=== PATIENT | female | born 1985 | race African-American/Black ===

== ENCOUNTER 2019-03-01 07:10 | Inpatient (IN) | payer BC ==
[~2019-03-01 07:10] MED LIST: ELECTROLYTE-148 SOLN 1,000 ML IV SCH
[2019-03-01] MEDS ORDERED: CITRIC ACID/SODIUM CITRATE 30 ML UNIT-DOSE CUP PO ONE (08:00)
[2019-03-01] MEDS ORDERED: ELECTROLYTE-148 SOLN 1,000 ML IV SCH ×2 (08:10→10:00)
[2019-03-01 08:37] VITALS: BMI 43.0
[2019-03-01] MEDS ORDERED: OXYTOCIN 20 UNITS in 0.9% NS 40 UNIT/2,000 ML INFUS.BAG IV ONE (09:00)
--- NOTE | 2019-03-01 09:59 | HP ---
Past Medical History - Admission Chief Complaint: breech History of Present Illness: none History Source: Patient Limitations to Obtaining History: No Limitations - Past Medical History DIRECTOR BROADCAST: No: Alzheimer's, CVA, Dementia, Migraine, Multiple Sclerosis, Peripheral Neuropathy, Parkinson's, Seizure, Syncope, TIA, Vertigo, Other Cardiovascular: No: AFIB, Aneurysm, Aortic Insufficiency, Aortic Stenosis, CAD, CHF, Deep Vein Thrombosis, HTN, Hyperlipdemia, [place], Mitral Insufficiency, Mitral Stenosis, Murmur, Pulmonary Hypertension, Other Pulmonary: No: Asthma, Bronchitis, Cancer, COPD, O2 Dependent, Pneumonia, Previously Intubated, Pulmonary Embolus, Pulmonary Fibrosis, Sleep Apnea, Other Gastrointestinal: No: Ascites, Cancer, Constipation, Crohn's Disease, Diverticulitis, Diverticulosis, Esophageal Varices, Gastritis, GERD, GI Bleed, Hemorrhoids, Hiatal Hernia, Inflamatory Bowel Disease, Irritable Bowel Disease, Pancreatitis, Peptic Ulcer Disease, Ulcerative Colitis, Other Hepatobiliary: No: Cirrhosis, Cholelithiasis, Cholecystitis, Choledocholithiasis , Hepatitis A, Hepatitis B, Hepatitis C, Other Renal/: No: Renal Failure, Renal Inusuff, BPH, Cancer, Hematuria, Hemodialysis , Neurogenic Bladder, Renal Calculi, UTI, Other Reproductive: No: Ectopic , Endometriosis, Fibroids, PID, Polycystic Ovary Syndrome, Postmenopausal, Other ...: 1 ...Para: 0 ...Term: 0 ...: 0 ...Spon : 0 ...Induced : 0 ...Multiple Gestation: 0 ... Weeks Gestation by Dates: 39 ...EDC by Alberto: 03/09/19 Heme/Onc: No: Anemia, B12 Deficiency, Bleeding Disorder, Cancer, Current Chemotherapy, Current Radiation Therapy, Hemochromatosis, Hypercoaguable State, Myeloproliferative Synd, Sickle Cell Disease, Sickle Cell Trait, Thrombocytopenia, Other Infectious Disease: No: AIDS, C-Diff, Herpes Zoster, HIV, MRSA, STD's, Tuberculosis, VREF, Other Psych: No: Addictions, Anxiety, Bipolar, Depression, Panic, Psychosis, Schizophrenia, Other Musculoskeletal: No: Bursitis, Chronic low back pain, Hemiparesis, Hemiplegia, Osteoarthritis, Paraplegia, Other Rheumatology: No: Fibromyalgia, Gout, Lupus, Rheumatoid Arthritis, Sarcoidosis, Vasculitis, Other ENT: No: Allergic Rhinitis, Sinusitis, Other Endocrine: No: [place]'s Disease, [place]'s Disease, Diabetes Insipidus, Diabetes Mellitus, Hyperparathyroidism, Hyperthyroidism, Hypothyroidism, Osteopenia, SIADH, Other Dermatology: No: Basal Cell, Cellulitis, Eczema, Melanoma, Psoriasis, Squamous Cell, Other - Past Surgical History Past Surgical History: No: None, AAA Repair, AICD, Amputation, Appendectomy, Arthrosocopy, AV Fistula/Graft, Bariatric Surgery, Breast Biopsy, Bypass, CABG, Carotid Endarterectomy, Cataract Removal, Cholecystectomy, Colectomy, Colonoscopy, Colostomy, Craniotomy, , Cystectomy, Hernia Repair, Hysterectomy, Ileal Conduit, Ileosotomy, Joint Replacement, Kidney Transplant, Laminectomy, Liver Transplant, Mastectomy, Nephrectomy, Oopherectomy, Orchiectomy, Permanent Pacemaker, Prostatectomy, Splenectomy, Stent, Thoracotomy , TURP, Tonsillectomy, Tubal Ligation, Upper Endoscopy, Valve Replacement, Vasectomy, Vein Stripping/Ligation Hx Myomectomy: No Hx Transabdominal Cerclage: No - Advance Directives Advance Directives: Yes: Living Will - Smoking History Smoking history: Never smoked Have you smoked in the past 12 months: No - Alcohol/Substance Use Hx Alcohol Use: No History of Substance Use: reports: None - Social History Usual Living Arrangement: Yes: With Spouse Do you think of yourself as: Straight/Heterosexual ADL: Independent History of Recent Travel: No Home Medications - Allergies Allergies/Adverse Reactions: Allergies Allergy/AdvReac Type Severity Reaction Status Date / Time No Known Allergies Allergy Verified 03/01/19 07:33 - Home Medications Home Medications: Ambulatory Orders Vits96/Iron Fum/Folic [ Tablet] 1 each PO DAILY 03/01/19 Family Medical History Family History: Denies Review of Systems - Review of Systems Constitutional: reports: No Symptoms Eyes: reports: No Symptoms HENT: reports: No Symptoms Neck: reports: No Symptoms Cardiovascular: reports: No Symptoms Respiratory: reports: No Symptoms Gastrointestinal: reports: No Symptoms Genitourinary: reports: No Symptoms Breasts: reports: No Symptoms Reported Musculoskeletal: reports: No Symptoms Integumentary: reports: No Symptoms Neurological: reports: No Symptoms Endocrine: reports: No Symptoms Hematology/Lymphatic: reports: No Symptoms Psychiatric: reports: No Symptoms Physical Exam - Maternity Vital Signs: Vital Signs Temperature 98.2 F 11/21/19 09:50 Pulse Rate 91 H 03/01/19 09:50 Respiratory Rate 18 03/01/19 09:50 Blood Pressure 138/75 03/01/19 09:50 O2 Sat by Pulse Oximetry (%) Constitutional: Yes: Well Nourished, No Distress, Calm Eyes: Yes: WNL, Conjunctiva Clear, EOM Intact HENT: Yes: WNL, Atraumatic, Normocephalic Neck: Yes: WNL, Supple, Trachea Midline Cardiovascular: Yes: WNL, Regular Rate and Rhythm Lungs: Clear to auscultation Breast(s): Yes: WNL - Abdominal Exam/OB Fundal Height: 40 Number of Fetuses: Single Presentation: Breech Contractions: Yes Regularity: Irregular Intensity: Mild Monitor Mode: External Heart Rate Location: [facility] Category: I Accelerations: None Decelerations: None - Vaginal Exam/OB Vaginal Bleediing: No Speculum Exam: No Amniotic Membrane Status: Intact Presentation: Eddie Breech Station: -3 - Physical Exam Musculoskeletal: Yes: WNL Extremities: Yes: WNL Edema: No Edema: LUE: 1+, RUE: 1+, LLE: 1+, RLE: 1+ Integumentary: Yes: WNL Deep Tendon Reflex Grade: Normal +2 ...Motor Strength: WNL Psychiatric: Yes: WNL, Alert, Oriented Hemorrhage Risk Assessment - Risk Factors Assessment/Plan: for c s Assessment/Plan breech for c s
[2019-03-01] MEDS ORDERED: morphine SULFATE/PF 0.5 MG/ML (2cc Syringe - QUVA) ONE (10:46)
[2019-03-01] MEDS ORDERED: morphine SULFATE/PF 0.5 MG/ML (2cc Syringe - QUVA) EP ONE (10:52)
[2019-03-01] MEDS ORDERED: ePHEDrine SULFATE 50 MG/1 ML AMPULE ONE (10:59)
[2019-03-01] MEDS ORDERED: ceFAZolin SODIUM 1 GM VIAL ONE (11:15)
[2019-03-01] MEDS ORDERED: KETOROLAC TROMETHAMINE 30 MG/1 ML VIAL ONE (11:15)
[2019-03-01] MEDS ORDERED: ONDANSETRON 4 MG/2 ML VIAL IVPUSH PRN ×2 (12:19)
[2019-03-01] MEDS ORDERED: ACETAMINOPHEN 1000 MG/100 ML VIAL (NON FORMULARY) IVPB ONE (12:21)
[2019-03-01] MEDS ORDERED: LACTATED RINGERS SOLUTION 1,000 ML IV SCH (12:30)
[2019-03-01] MEDS ORDERED: oxyCODONE HCL 5 MG TABLET PO PRN ×2 (12:38)
[2019-03-01] MEDS ORDERED: METHYLERGONOVINE MALEATE 0.2 MG/1 ML AMP IM PRN (12:38)
--- NOTE | 2019-03-01 12:43 | OP ---
Operative Note - Note: Operative Date: 03/01/19 Pre-Operative Diagnosis: breech for c s Operation: primary lt c s Findings: double footling breech Post-Operative Diagnosis: Same as Pre-op Surgeon: Pierre Gaston Produce Service Team Member: Luke Childers Anesthesiologist/AGRICULTURAL SCIENCES PROFESSOR: Amelia Muhammad Anesthesia: Spinal Estimated Blood Loss (mls): 600 (no complications ) Operative Report Dictated: Yes
[2019-03-01] MEDS ORDERED: OXYTOCIN 20 UNITS in 0.9% NS 20 UNIT/1,000 ML INFUS.BAG IV SCH (12:45)
[2019-03-01] MEDS ORDERED: ACETAMINOPHEN INJECTION 100 ML IVPB ONE (12:45)
[2019-03-01] MEDS ORDERED: SENNOSIDES/DOCUSATE COMBO (SENNA PLUS) TABLET (UD) PO PRN (22:00)
[2019-03-02] MEDS: IBUPROFEN 800 MG/8 ML IJ IVPB PRN ×2 (00:29→08:19)
--- NOTE | 2019-03-02 08:36 | PN ---
Progress Note (short form) - Note Progress Note: Anesthesia postop note 33 y/o F s/p spinal anesthesia/duramorph for section POD#1, vss, aaox3, no complaints No anesthesia complications.
[2019-03-02 09:13] LABS: BASO % 0.4 % (0-2.0); EOS % 1.1 % (0-4.5); HEMATOCRIT 34.4 % (32.4-45.2); HEMOGLOBIN 11.1 GM/dL (10.7-15.3); LYMPH % 11.4 % (8-40); MCH 23.8 pg (25.7-33.7); MCHC 32.2 g/dl (32.0-36.0); MEAN PLT VOLUME 10.8 fl (7.5-11.1); MONO % 7.1 % (3.8-10.2); PLATELET COUNT 161 K/MM3 (134-434); RBC 4.65 M/mm3 (3.60-5.2); WHITE BLOOD COUNT 11.5 K/mm3 (4.0-10.0)
[2019-03-02] MEDS: ENOXAPARIN NA (PORCINE) 40 MG/0.4 ML DISP.SYRIN SQ SCH (10:15)
[2019-03-02] MEDS ORDERED: BISACODYL 10 MG SUPP.RECT RC PRN (12:38)
[2019-03-02] MEDS: ACETAMINOPHEN 325 MG TABLET (FP) PO PRN (16:05)
[2019-03-02] MEDS: IBUPROFEN 600 MG TABLET (FP) PO PRN (16:05)
[2019-03-02] MEDS: SIMETHICONE 80 MG TAB.CHEW (FP) PO PRN (16:05)
--- NOTE | 2019-03-02 17:04 | PN ---
Post Progress Note Type of Delivery: Primary C/S Vital Signs: Vital Signs Temperature 98.4 F 03/02/19 12:49 Pulse Rate 112 H 03/02/19 12:49 Respiratory Rate 18 03/02/19 13:00 Blood Pressure 128/83 03/02/19 12:49 O2 Sat by Pulse Oximetry (%) 99 03/01/19 14:00 Breast Exam: Yes: Soft Uterus: Yes: Fundus Firm, Fundus below umbilicus, Non-tender Incision: Yes: Dressing dry and intact, Sutures intact Abdomen/GI: Yes: Abdomen soft, Passing flatus, Tolerating PO Lochia: Yes: Serosa Lochia, amount: Small Extremities: Yes: Calves non-tender Perineum: Yes: Intact Activity: Ambulating - Labs Labs: CBC WBC 11.5 K/mm3 (4.0-10.0) H 03/02/19 07:38 RBC 4.65 M/mm3 (3.60-5.2) 03/02/19 07:38 Hgb 11.1 GM/dL (10.7-15.3) 03/02/19 07:38 Hct 34.4 % (32.4-45.2) 03/02/19 07:38 MCV 74.0 fl (80-96) L 03/02/19 07:38 MCH 23.8 pg (25.7-33.7) L 03/02/19 07:38 MCHC 32.2 g/dl (32.0-36.0) 03/02/19 07:38 RDW 18.0 % (11.6-15.6) H 03/02/19 07:38 Plt Count 161 K/MM3 (134-434) 03/02/19 07:38 MPV 10.8 fl (7.5-11.1) 03/02/19 07:38 Absolute Neuts (auto) 9.2 K/mm3 (1.5-8.0) H 03/02/19 07:38 Neutrophils % 80.0 % (42.8-82.8) 03/02/19 07:38 Lymphocytes % 11.4 % (8-40) 03/02/19 07:38 Monocytes % 7.1 % (3.8-10.2) 03/02/19 07:38 Eosinophils % 1.1 % (0-4.5) 03/02/19 07:38 Basophils % 0.4 % (0-2.0) 03/02/19 07:38 Nucleated RBC % 0 % (0-0) 03/02/19 07:38 Assessment/Plan oob as much as posiible
--- NOTE | 2019-03-02 17:34 | OP ---
DATE OF OPERATION: 03/01/2019 PREOPERATIVE DIAGNOSIS: Primary low transverse section for breech presentation. POSTOPERATIVE DIAGNOSIS: Primary low transverse section for breech presentation, double footling breech presentation. PROCEDURE: Primary low transverse section. SURGEON: Pierre Cheema MD PRODUCT EXPERT: REILLY Santos ANESTHESIA: Yovanny Skinner MD, spinal anesthesia. BLOOD LOSS: About 600 mL. PATHOLOGY: Placenta. COMPLICATIONS: None. INDICATIONS: This is a 33-year-old female patient 39 weeks who has been known to be breech presentation since about 30 weeks , and the patient is currently 39 weeks . Is taken to the OR for primary low transverse section. DESCRIPTION OF PROCEDURE: Patient was taken to the OR. Placed on the operating room table in supine position. After the spinal anesthesia was obtained, the patient's abdomen and pelvis were prepped and draped in the usual sterile manner. Pfannenstiel incision was made. Incision was made through the skin and subcutaneous tissue until the fascia was nicked in the midline. The fascia was extended bilaterally. Intraperitoneal cavity was entered. Bladder flap was not created. Low transverse segment uterus was entered. Baby delivered double footling breech presentation. Baby was handed over to roller hand after umbilical cord doubly clamped and cut. Cord blood gas obtained. Placenta was removed. Uterus was closed in a single layer. First layer interlocking Vicryl suture with good hemostasis. Both gutters were cleaned. Both ovaries, fallopian tubes, uterus are within normal limits. No complications. Patient tolerated procedure well. Peritoneum was closed. Fascia was closed. Skin was closed. Draining clear urine. Transferred to recovery room in stable condition. PIERRE CHEEMA MD /[id number]
[2019-03-03] MEDS: ACETAMINOPHEN 325 MG TABLET (FP) PO PRN ×2 (00:12→17:00)
[2019-03-03] MEDS: IBUPROFEN 600 MG TABLET (FP) PO PRN ×3 (00:12→17:00)
[2019-03-03] MEDS: ENOXAPARIN NA (PORCINE) 40 MG/0.4 ML DISP.SYRIN SQ SCH (09:50)
[2019-03-03] MEDS ORDERED: DIPHTH,PERTUSS(ACELL),TET 0.5 ML DISP.SYRIN IM ONE (10:00)
[2019-03-03] MEDS: SIMETHICONE 80 MG TAB.CHEW (FP) PO PRN ×2 (10:36→17:00)
--- NOTE | 2019-03-03 15:33 | PN ---
Post Progress Note Post Day: 2 Type of Delivery: Primary C/S Vital Signs: Vital Signs Temperature 97.8 F 03/03/19 08:30 Pulse Rate 82 03/03/19 08:30 Respiratory Rate 16 03/03/19 08:30 Blood Pressure 123/70 03/03/19 08:30 O2 Sat by Pulse Oximetry (%) 99 03/01/19 14:00 Breast Exam: Yes: Soft Uterus: Yes: Fundus Firm, Fundus below umbilicus Incision: Yes: Dressing dry and intact, Sutures intact Abdomen/GI: Yes: Abdomen soft, Passing flatus, Tolerating PO Lochia: Yes: Serosa Lochia, amount: Small Extremities: Yes: Calves non-tender Activity: Ambulating - Labs Labs: CBC WBC 11.5 K/mm3 (4.0-10.0) H 03/02/19 07:38 RBC 4.65 M/mm3 (3.60-5.2) 03/02/19 07:38 Hgb 11.1 GM/dL (10.7-15.3) 03/02/19 07:38 Hct 34.4 % (32.4-45.2) 03/02/19 07:38 MCV 74.0 fl (80-96) L 03/02/19 07:38 MCH 23.8 pg (25.7-33.7) L 03/02/19 07:38 MCHC 32.2 g/dl (32.0-36.0) 03/02/19 07:38 RDW 18.0 % (11.6-15.6) H 03/02/19 07:38 Plt Count 161 K/MM3 (134-434) 03/02/19 07:38 MPV 10.8 fl (7.5-11.1) 03/02/19 07:38 Absolute Neuts (auto) 9.2 K/mm3 (1.5-8.0) H 03/02/19 07:38 Neutrophils % 80.0 % (42.8-82.8) 03/02/19 07:38 Lymphocytes % 11.4 % (8-40) 03/02/19 07:38 Monocytes % 7.1 % (3.8-10.2) 03/02/19 07:38 Eosinophils % 1.1 % (0-4.5) 03/02/19 07:38 Basophils % 0.4 % (0-2.0) 03/02/19 07:38 Nucleated RBC % 0 % (0-0) 03/02/19 07:38 Other Findings, Remarks: doing well, d c pt home tomorrow
--- NOTE | 2019-03-03 15:36 | DS ---
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: Vital Signs Temperature 97.8 F 03/03/19 08:30 Pulse Rate 82 03/03/19 08:30 Respiratory Rate 16 03/03/19 08:30 Blood Pressure 123/70 03/03/19 08:30 O2 Sat by Pulse Oximetry (%) 99 03/01/19 14:00 Constitutional: Yes: Well Nourished, No Distress, Calm Eyes: Yes: WNL, Conjunctiva Clear, EOM Intact HENT: Yes: WNL, Atraumatic, Normocephalic Neck: Yes: WNL, Supple, Trachea Midline Cardiovascular: Yes: WNL, Regular Rate and Rhythm Respiratory: Yes: WNL, Regular, CTA Bilaterally Gastrointestinal: Yes: WNL, Normal Bowel Sounds, Soft ...Rectal Exam: Yes: WNL Renal/: Yes: WNL Pelvis: Yes: WNL External Genitalia: Yes: Normal Internal Exam Deferred: No Vaginal Exam: Yes: Normal Cervix: Yes: Normal Uterus: Yes: Normal Adnexa: Normal: Bilateral ....Post : Yes: Uterus firm, Uterus non-tender Breast(s): Yes: WNL Musculoskeletal: Yes: WNL Extremities: Yes: WNL Edema: LUE: 1+, RUE: 1+, LLE: 1+, RLE: 1+ Integumentary: Yes: WNL Wound/Incision: Yes: Clean/Dry, Well Approximated Neurological: Yes: WNL, Alert, Oriented ...Motor Strength: WNL Psychiatric: Yes: WNL, Alert, Oriented Labs: CBC, BMP 03/02/19 07:38 Delivery - Delivery Type of Anesthesia: Spinal EBL (cc): 600 Delivery, Single - Stages of Labor Date of Delivery: 03/01/19 Time of Delivery: 11:12 Time Placenta Delivered: 11:13 - Condition of Infant Concrete Vault 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/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 Present: Yes Name: Charlotte Mcdaniel Infant Gender: Female Weight: 3.912 kg Total Hours ROM (Hrs/Mins): 0/2 - 1 Minute Total Score: 7 5 Minutes Total Score: 9 - Viola Feeding Plan Initial Plan: Exclusive throughout hospitalization Discharge Summary Problems reviewed: Yes Reason For Visit: C SECTION Procedures: Principal: c section Hospital Course: un eventful Health Concerns: none Plan of Treatment: oob as much as possible Goals: return to work in 8 weeks Condition: Good - Instructions Diet, Activity, Other Instructions: regular, routine post instructions Disposition: HOME - Home Medications Comprehensive Discharge Medication List: Ambulatory Orders Vits96/Iron Fum/Folic [ Tablet] 1 each PO DAILY 03/01/19 Prescription Drug Monitoring Program (I-STOP) results: I-STOP reviewed and no issues identified
[2019-03-04] MEDS: ACETAMINOPHEN 325 MG TABLET (FP) PO PRN ×2 (01:34→09:35)
[2019-03-04] MEDS: IBUPROFEN 600 MG TABLET (FP) PO PRN ×2 (01:35→09:36)
[2019-03-04] MEDS: SIMETHICONE 80 MG TAB.CHEW (FP) PO PRN ×2 (01:38→09:36)
[2019-03-04 07:58] LABS: BASO % 0.5 % (0-2.0); EOS % 3.3 % (0-4.5); HEMATOCRIT 29.9 % (32.4-45.2); HEMOGLOBIN 9.9 GM/dL (10.7-15.3); LYMPH % 16.6 % (8-40); MCH 24.5 pg (25.7-33.7); MEAN CELL VOLUME 74.2 fl (80-96); MEAN PLT VOLUME 9.2 fl (7.5-11.1); MONO % 9.4 % (3.8-10.2); NEUT % 70.2 % (42.8-82.8); PLATELET COUNT 169 K/MM3 (134-434); RBC 4.03 M/mm3 (3.60-5.2); RDW 18.4 % (11.6-15.6); WHITE BLOOD COUNT 7.3 K/mm3 (4.0-10.0)
[2019-03-04] MEDS: ENOXAPARIN NA (PORCINE) 40 MG/0.4 ML DISP.SYRIN SQ SCH (09:36)
[2019-03-04 09:44] VITALS: BP 135/68; PULSE 99; TEMP 98.2
--- NOTE | 2019-03-12 16:53 | PATH ---
Surgical Pathology Report Patient Name: JUAN JARAMILLO [facility]. Rec. 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 Electronically Signed Alice Pastrana M.D. Gross Description The specimen is received fresh labeled placenta and is a 536 gram, 15.0 x 11.0 x 3.2 cm. placenta with attached membranes and umbilical cord. The attached membranes are melchor, thick, cloudy and insert marginally. The umbilical cord measures 26 cm. in length and averages 1.3 cm. in diameter. The cord inserts eccentrically, 1.5 cm. to the nearest margin. No true knots or strictures are identified. Cut surface of the umbilical cord reveals 3 vessels. The surface is moran-blue with minimal fibrin deposition and appropriate caliber vessels. The maternal surface is red-brown with focal defects. Sectioning reveals red-brown, spongy parenchyma. No lesions are identified. Inside Sales Professional sections are submitted in three cassettes as follows: 1- membrane rolls and umbilical cord; 2-3- full thickness sections of placenta. /03/09/2019 [facility]03/09/2019
== END 2019-03-04 13:05 | disposition home or self-care (01) | DRG 788 ==
LOC: JLDR 07:10 → J3W 14:30
PROVIDERS: ADMIT Obstetrics & Gynecology; ATTEND Obstetrics & Gynecology
PROC: 10D00Z1 Extraction of Products of Conception, Low, Open Approach (ICD-10-PCS; principal; 2019-03-01)
DX: O32.8XX0 Maternal care for other malpresentation of fetus, not applicable or unspecified (principal); Z3A.39 39 weeks gestation of pregnancy; Z37.0 Single live birth
CPT/HCPCS: 36415; 85025; 88307-TC; 90715; J0131